=== PATIENT | female | born 1975 | race Caucasian/White ===

== ENCOUNTER 2017-07-10 10:50 | Emergency (ER) | payer SELFPAY | END 2017-07-10 11:46 | disposition home or self-care (01) | LOC: MADERS 10:50 | DX: J02.9 Acute pharyngitis, unspecified (principal); I10 Essential (primary) hypertension; Z87.891 Personal history of nicotine dependence; Z79.899 Other long term (current) drug therapy; Z79.82 Long term (current) use of aspirin | CPT/HCPCS: 87081; 87430; 99283 ==

== ENCOUNTER 2023-05-01 16:35 | Emergency (ER) | payer OTHER, SELFPAY ==
[2023-05-01] MEDS ORDERED: Ibuprofen 800 MG TAB ONE (18:08)
== END 2023-05-01 18:21 | disposition home or self-care (01) ==
LOC: MADERS 16:35
DX: S33.5XXA Sprain of ligaments of lumbar spine, initial encounter (principal); S51.811A Laceration without foreign body of right forearm, initial encounter; I10 Essential (primary) hypertension; V43.53XA Car driver injured in collision with pick-up truck in traffic accident, initial encounter; W22.11XA Striking against or struck by driver side automobile airbag, initial encounter; Z87.891 Personal history of nicotine dependence; Z79.82 Long term (current) use of aspirin; Z79.899 Other long term (current) drug therapy
CPT/HCPCS: 72110